=== PATIENT | male | born 2000 | race Two or more races ===

== ENCOUNTER 2019-10-08 15:02 | Emergency (ER) | payer OTHER ==
[~2019-10-08] VITALS: Ht 175.3 cm; Wt 75.7 kg
== END 2019-10-08 22:26 | disposition home or self-care (01) ==
LOC: ER 15:02
DX: A90 Dengue fever [classical dengue] (principal); B34.9 Viral infection, unspecified

== ENCOUNTER 2019-10-10 13:27 | Emergency (ER) | payer OTHER ==
[~2019-10-10] VITALS: Ht 175.3 cm; Wt 75.7 kg
== END 2019-10-10 15:43 | disposition home or self-care (01) ==
LOC: ER 13:27
DX: A90 Dengue fever [classical dengue] (principal)

== ENCOUNTER 2022-03-04 19:41 | Emergency (ER) | payer OTHER ==
[~2022-03-04] VITALS: Ht 175.3 cm; Wt 72.6 kg
== END 2022-03-04 23:02 | disposition home or self-care (01) ==
LOC: ER 19:41
DX: J03.90 Acute tonsillitis, unspecified (principal)

== ENCOUNTER 2024-01-19 10:56 | Emergency (ER) | payer OTHER ==
[~2024-01-19] VITALS: Ht 172.7 cm; Wt 72.6 kg
[2024-01-19] MEDS ORDERED: DEXAMETHASONE SODIUM PHOSPHATE 4 MG/ML VIAL IM STA (14:37)
[2024-01-19] MEDS ORDERED: CEFTRIAXONE SODIUM 1,000 MG VIAL IM STA (14:37)
[2024-01-19] MEDS ORDERED: ORPHENADRINE CITRATE 30 MG/ML AMPUL IM STA (14:38)
[2024-01-19] MEDS ORDERED: KETOROLAC TROMETHAMINE 30 MG VIAL IM STA (14:39)
[2024-01-19] MEDS ORDERED: CEPHALEXIN750 MG PO (14:43)
== END 2024-01-19 15:55 | disposition home or self-care (01) ==
LOC: ER 10:58
DX: J03.90 Acute tonsillitis, unspecified (principal)

== ENCOUNTER 2025-01-30 12:59 | Emergency (ER) | payer OTHER ==
[~2025-01-30] VITALS: Ht 172.7 cm; Wt 74.8 kg
[~2025-01-30 12:59] MED LIST: CEPHALEXIN750 MG PO
[2025-01-30] MEDS ORDERED: DEXAMETHASONE SODIUM PHOSPHATE 4 MG/ML VIAL IM STA (16:52)
[2025-01-30] MEDS ORDERED: ONDANSETRON HCL 2 MG/ML VIAL IV STA (16:52)
[2025-01-30] MEDS ORDERED: DIPHENHYDRAMINE HCL 50 MG/ML VIAL 1ML IV STA (16:52)
[2025-01-30] MEDS ORDERED: KETOROLAC TROMETHAMINE 30 MG VIAL IU STA (16:52)
[2025-01-30] MEDS ORDERED: FAMOTIDINE/PF 20 MG/2 ML VIAL IV STA (16:52)
[2025-01-30] MEDS ORDERED: 0.9 % SODIUM CHLORIDE 1,000 ML IV STA (16:53)
[2025-01-30] MEDS ORDERED: DIPHENHYDRAMINE HCL 50 MG/ML VIAL 1ML ONE (18:57)
[2025-01-30] MEDS ORDERED: KETOROLAC TROMETHAMINE 30 MG VIAL ONE (18:57)
[2025-01-30] MEDS ORDERED: ONDANSETRON HCL 2 MG/ML VIAL ONE (18:58)
[2025-01-30] MEDS ORDERED: DEXAMETHASONE SODIUM PHOSPHATE 4 MG/ML VIAL ONE (18:58)
[2025-01-30] MEDS ORDERED: FAMOTIDINE/PF 20 MG/2 ML VIAL ONE (18:58)
[2025-01-30 19:33] LABS: BASO % 0.3 % (0.1-1.2); EOS # 0.04 (0.04-0.54); EOS % 1.2 % (0.7-7.0); LYMPH # 1.26 (1.18-3.74); LYMPH % 36.5 % (19.3-53.1); MEAN PLATELET VOLUME 9.60 fl (9.4-12.4); MONO # 0.35 (0.24-0.82); MONO % 10.1 % (4.7-12.5); NEUT # 1.78 (1.56-6.13); NEUT % 51.6 % (34.0-71.1); RED CELL DISTRIBUTION WIDTH 11.9 % (11.6-14.4)
[2025-01-30 19:37] LABS: ERYTHROCYTE SEDIMENTATION RATE 19 mm/hr (0-15)
[2025-01-30 20:17] LABS: ALT/SGPT 28.0 U/L (12-78); AST/SGOT 21.0 U/L (15-37); BILIRUBIN TOTAL 0.33 mg/dL (0.3-1.2); BUN CREA RATIO 14.0 (7.0-25.0); CREATININE SERUM 0.93 mg/dL (0.70-1.30); GFR 99.0; GLOBULINA 3.4 G/DL (2.4-3.5); GLUCOSE FASTING 97.0 mg/dL (65-100); OSMOLALITY SERUM 281.0 MOSM/KG (275-295)
[2025-01-30 20:27] LABS: COVID-19 AG NEGATIVE (NEGATIVE)
[2025-01-30] MEDS ORDERED: MUCINEX D ER 11 EACH PO (21:10)
== END 2025-01-30 22:04 | disposition home or self-care (01) ==
LOC: ER 13:00
PROVIDERS: Physician Assistant Medical
DX: B34.9 Viral infection, unspecified (principal); Z20.822 Contact with and (suspected) exposure to COVID-19